=== PATIENT | female | born 1955 | race Caucasian/White ===

== ENCOUNTER 2019-12-31 13:45 | Outpatient (CLI) | payer BC | END 2019-12-31 13:46 | disposition home or self-care (01) | LOC: COV 13:45 | PROVIDERS: ATTEND Family Medicine | DX: R05 Cough (principal); R50.9 Fever, unspecified | CPT/HCPCS: 81599 ==

== ENCOUNTER 2021-10-22 13:35 | Outpatient (CLI) | payer MEDICARE | END 2021-10-22 13:36 | disposition EMS.NT | LOC: EMS 13:35 | DX: R10.9 Unspecified abdominal pain (principal) ==

== ENCOUNTER 2021-10-22 14:30 | Emergency (ER) | payer BC, MEDICARE ==
[2021-10-22] MEDS ORDERED: SODIUM CHLORIDE 0.9% 1,000 ML IV STA (14:58)
--- NOTE | 2021-10-22 14:59 | ED Physician Documentation ---
PD HPI ABD PAIN - Stated complaint Stated Complaint: SHAKING/RAPID HEART RATE - Chief complaint Chief Complaint: Abd Pain - History obtained from History obtained from: Patient - Additional information Additional information: 65-year-old woman with history of conservatively managed diverticulitis developed left lower quadrant pain 6 days ago. She had a televisit with her physician at [facility] who prescribed Cipro and Flagyl for presumed diverticulitis. Over the last day or so she is starting to feel more ill with rapid heart rate, shaking, and an increase in the sharpness of the left lower quadrant pain. She is otherwise very healthy except for a history of cervical radiculopathy and tubal . Review of Systems Ten Systems: 10 systems reviewed and negative Constitutional: reports: Chills, Sweats Cardiac: denies: Chest pain / pressure Respiratory: denies: Dyspnea, Cough PD PAST MEDICAL HISTORY - Allergies Allergies/Adverse Reactions: Allergies Allergy/AdvReac Type Severity Reaction Status Date / Time gluten Allergy Unknown Verified 10/22/21 14:40 Sulfa (Sulfonamide Allergy Respiratory Verified 10/22/21 14:40 Antibiotics) PD ED PE NORMAL - Vitals Vital signs reviewed: Yes - General General: Alert and oriented X 3, No acute distress - HEENT HEENT: PERRL, EOMI - Neck Neck: Supple, no meningeal sign, No bony TTP - Cardiac Cardiac: RRR, No murmur - Respiratory Respiratory: No respiratory distress, Clear bilaterally - Abdomen Abdomen: Normal bowel sounds, Soft, Other (Tender diffusely on the left side, lower more than upper. Potentially some mild rebound tenderness.) - Back Back: No CVA TTP, No spinal TTP - Derm Derm: Normal color, Warm and dry - Extremities Extremities: No edema, No calf tenderness / cord - Neuro Neuro: Alert and oriented X 3, Normal speech Results - Vitals Vitals: Vital Signs - 24 hr 10/22/21 10/22/21 10/22/21 14:40 15:39 17:17 Temperature 37.0 C 37.0 C 36.7 C Heart Rate 94 94 74 Respiratory 19 19 16 Rate Blood Pressure 154/92 H 154/92 H 127/77 O2 Saturation 99 99 100 Oxygen O2 Source Room air - EKG (time done) 1439 Rate: Rate (enter#) (79) Rhythm: NSR [place]: Normal QRS: Low voltage Ischemia: Non specific changes. No: ST elevation c/w ischemia, ST depression - Labs Labs: Laboratory Tests 10/22/21 10/22/21 10/22/21 15:04 15:04 15:45 WBC 5.6 RBC 4.15 L Hgb 13.0 Hct 39.1 MCV 94.2 MCH 31.3 H MCHC 33.2 RDW 13.4 Plt Count 413 MPV 8.3 Neut # (Auto) 3.3 Lymph # (Auto) 1.5 [place] # (Auto) 0.6 Eos # (Auto) 0.1 Baso # (Auto) 0.0 Absolute Nucleated RBC 0.00 Nucleated RBC % 0.0 Sodium 140 Potassium 3.7 Chloride 105 Carbon Dioxide 27 Anion Gap 8.0 BUN 9 Creatinine 0.8 Estimated GFR (MDRD) 72 L Glucose 110 H Calcium 8.9 Total Bilirubin < 0.2 L AST 31 ALT 38 Alkaline Phosphatase 56 Total Protein 6.7 Albumin 3.9 Globulin 2.8 Albumin/Globulin Ratio 1.4 Lipase 48 Urine Color YELLOW Urine Clarity CLEAR Urine pH 7.0 Ur Specific [place] 1.010 Urine Protein NEGATIVE Urine Glucose (UA) NEGATIVE Urine Ketones NEGATIVE Urine Occult Blood NEGATIVE Urine Nitrite NEGATIVE Urine Bilirubin NEGATIVE Urine Urobilinogen 0.2 (NORMAL) Ur Leukocyte Esterase TRACE H Urine RBC 0-5 Urine WBC 0-3 Ur Epithelial Cells FEW Transitional Ur Squamous Epith Cells FEW Squamous Urine Bacteria Rare Ur Microscopic Review INDICATED Urine Culture Comments INDICATED PD MEDICAL DECISION MAKING - ED course ED course: CT showing a persistent diverticulitis. Presume it is the antibiotics now causing her symptoms and she can stop. Otherwise work-up negative. Departure - Departure Disposition: 01 Home, Self Care Clinical Impression: Abdominal pain, Diverticulosis Condition: Good Record reviewed to determine appropriate education?: Yes Instructions: ED Abdominal Pain Female Non-Specific Abdominal Pain Comments: As discussed, at the current time there is no evidence of diverticulitis. Your labs are relatively unremarkable and the CAT scan shows diverticulosis but no diverticulitis. You do have degenerative changes of the spine and hips incidentally noted. I think at this point it is likely that the stomach issues you are having could be related to the antibiotics and I would stop them and presume that your symptoms will resolve. Return if worsening. Discharge Date/Time: 10/22/21 17:25
[2021-10-22 15:11] LABS: BASOPHILS % (AUTO) 0.7 %; EOSINOPHILS # (AUTO) 0.1 10^3/uL (0.0-0.7); EOSINOPHILS % (AUTO) 2.3 %; HCT - HEMATOCRIT 39.1 % (37.0-47.0); LYMPHOCYTES # (AUTO) 1.5 10^3/uL (1.5-3.5); LYMPHOCYTES % (AUTO) 26.7 %; MEAN CORPUSCULAR HEMOGLOBIN 31.3 pg (27.0-31.0); MEAN CORPUSCULAR HGB CONC 33.2 g/dL (32.0-36.0); MEAN CORPUSCULAR VOLUME 94.2 fL (81.0-99.0); MEAN PLATELET VOLUME 8.3 fL (7.9-10.8); MONOCYTES # (AUTO) 0.6 10^3/uL (0.0-1.0); MONOCYTES % (AUTO) 11.2 %; NEUTROPHILS # (AUTO) 3.3 10^3/uL (1.5-6.6); NEUTROPHILS % (AUTO) 58.7 %; PLT - PLATELET COUNT 413 10^3/uL (130-450); RED BLOOD COUNT 4.15 10^6/uL (4.20-5.40); RED CELL DISTRIBUTION WIDTH 13.4 % (12.0-15.0); WHITE BLOOD COUNT 5.6 x10^3/uL (4.8-10.8)
[2021-10-22 15:22] LABS: ALBUMIN 3.9 g/dL (3.2-5.5); ALBUMIN/GLOBULIN RATIO 1.4 (1.0-2.2); ALKALINE PHOSPHATASE 56 IU/L (42-121); ALT ALANINE AMINOTRANSFERASE 38 IU/L (10-60); AST ASPARTATE AMINOTRANSFERASE 31 IU/L (10-42); BILIRUBIN,TOTAL < 0.2 mg/dL (0.2-1.0); BUN - BLOOD UREA NITROGEN 9 mg/dL (6-20); CALCIUM 8.9 mg/dL (8.5-10.3); CARBON DIOXIDE - CO2 27 mmol/L (21-32); CHLORIDE 105 mmol/L (101-111); CREATININE 0.8 mg/dL (0.4-1.0); GFR - MDRD 72 (>89); GLUCOSE 110 mg/dL (70-100); LIPASE 48 U/L (22-51); POTASSIUM 3.7 mmol/L (3.5-5.0); SODIUM 140 mmol/L (135-145); TOTAL PROTEIN 6.7 g/dL (6.7-8.2)
[2021-10-22] MEDS ORDERED: iohexoL-300 100 ML VIAL ONE (15:23)
[2021-10-22 16:40] LABS: BILIRUBIN,URINE NEGATIVE (NEGATIVE); GLUCOSE, URINE (UA) NEGATIVE (NEGATIVE); KETONES,URINE (UA) NEGATIVE (NEGATIVE); LEUKOCYTE ESTERASE, URINE TRACE (NEGATIVE); NITRITE,URINE NEGATIVE (NEGATIVE); OCCULT BLOOD,URINE NEGATIVE (NEGATIVE); PROTEIN,URINE NEGATIVE (NEGATIVE); UROBILINOGEN,URINE 0.2 (NORMAL) E.U./dL (NORMAL)
[2021-10-22 16:42] LABS: CLARITY,URINE CLEAR (CLEAR)
[2021-10-22 16:51] LABS: BACTERIA,URINE Rare /HPF (None Seen); EPITHELIAL CELLS,UR FEW Transitional /HPF (<= Few); RBC,URINE 0-5 /HPF (0-5); SQUAMOUS EPITHELIAL CELL,UR FEW Squamous (<= Few); WBC,URINE 0-3 /HPF (0-5)
--- NOTE | 2021-10-22 17:00 | CT Report ---
PROCEDURE: Abdomen/Pelvis W INDICATIONS: IV only, LLQ pain CONTRAST: IV CONTRAST: Isovue 300 ml: 100 PO CONTRAST: *NO PO CONTRAST TECHNIQUE: After the administration of nonionic iodinated contrast, 5 mm thick sections acquired from the diaphr agms to the symphysis. 5 mm thick coronal and sagittal reformats were acquired. For radiation dose reduction, the following was used: automated exposure control, adjustment of mA and/or kV according to patient size. COMPARISON: None. FINDINGS: Image quality: Excellent. ABDOMEN: Lung bases: Lung bases are clear. Heart size is normal. Small hiatal hernia. Solid organs: Liver and spleen are normal in size and enhancement. Gallbladder is unremarkable. Bi liary system is non dilated. Pancreas enhances normally. No adrenal nodules. Kidneys demonstrate n ormal size and enhancement, without hydronephrosis. Peritoneum and bowel: Small bowel is unremarkable. The stomach demonstrates a small hiatal hernia. Ap pendix is normal. There is diffuse large bowel diverticula most prominent within the sigmoid colon. N o significant inflammation or wall thickening to suggest diverticulitis. Nodes and vessels: No retroperitoneal or mesenteric adenopathy by size criteria. Aorta and inferior vena cava are normal in size. Miscellaneous: No ventral hernias. PELVIS: Genitourinary: Bladder wall thickness is normal. Unremarkable appearance of the uterus. No suspicio us adnexal mass. Miscellaneous: No inguinal hernias or adenopathy. Bones: No suspicious bony lesions. Multilevel degenerative changes of the spine. Minimal degenerati ve changes of the hips. No vertebral body compression fractures. IMPRESSION: Diverticulosis without current findings to suggest diverticulitis. No acute intra-abdominal/pelvic ab normality identified. Reviewed by: Alfa Henry DO on 10/22/2021 3:59 PM [facility] Approved by: Alfa Henry DO on 10/22/2021 3:59 PM [facility] Station ID: [id number]
[2021-10-22] MEDS ORDERED: iohexoL-300 100 ML VIAL IVP ONE (17:15)
[2021-10-22 17:17] VITALS: BP 127/77
== END 2021-10-22 17:25 | disposition home or self-care (01) ==
LOC: ED 14:30
DX: K57.30 Diverticulosis of large intestine without perforation or abscess without bleeding (principal); R10.32 Left lower quadrant pain; M16.0 Bilateral primary osteoarthritis of hip; M47.9 Spondylosis, unspecified
CPT/HCPCS: 36415; 74177; 80053; 81001; 83690; 85025; 87086; 93005; 99282; 99284; Q9967; 81003

== ENCOUNTER 2024-01-15 07:42 | Outpatient (CLI) | payer MEDICARE | END 2024-01-15 23:59 | disposition EMS.NT | LOC: EMS 07:42 | DX: R10.11 Right upper quadrant pain (principal); R10.811 Right upper quadrant abdominal tenderness ==

== ENCOUNTER 2024-01-15 09:32 | Emergency (ER) | payer MEDICARE ==
[2024-01-15 10:14] LABS: BILIRUBIN,URINE NEGATIVE (NEGATIVE); GLUCOSE, URINE (UA) NEGATIVE (NEGATIVE); KETONES,URINE (UA) NEGATIVE (NEGATIVE); LEUKOCYTE ESTERASE, URINE NEGATIVE (NEGATIVE); NITRITE,URINE NEGATIVE (NEGATIVE); OCCULT BLOOD,URINE NEGATIVE (NEGATIVE); PROTEIN,URINE NEGATIVE (NEGATIVE); UROBILINOGEN,URINE 0.2 (NORMAL) E.U./dL (NORMAL)
[2024-01-15 10:19] LABS: CLARITY,URINE CLEAR (CLEAR)
[2024-01-15 10:35] LABS: BASOPHILS # (AUTO) 0.1 10^3/uL (0.0-0.1); EOSINOPHILS # (AUTO) 0.2 10^3/uL (0.0-0.7); EOSINOPHILS % (AUTO) 3.3 %; HCT - HEMATOCRIT 40.9 % (37.0-47.0); HGB - HEMOGLOBIN 13.7 g/dL (12.0-16.0); LYMPHOCYTES # (AUTO) 2.2 10^3/uL (1.5-3.5); LYMPHOCYTES % (AUTO) 42.1 %; MEAN CORPUSCULAR HEMOGLOBIN 32.2 pg (27.0-31.0); MEAN CORPUSCULAR HGB CONC 33.5 g/dL (32.0-36.0); MEAN CORPUSCULAR VOLUME 96.2 fL (81.0-99.0); MEAN PLATELET VOLUME 8.5 fL (7.9-10.8); MONOCYTES # (AUTO) 0.7 10^3/uL (0.0-1.0); MONOCYTES % (AUTO) 12.7 %; NEUTROPHILS # (AUTO) 2.1 10^3/uL (1.5-6.6); NEUTROPHILS % (AUTO) 40.7 %; PLT - PLATELET COUNT 398 10^3/uL (130-450); RED BLOOD COUNT 4.25 10^6/uL (4.20-5.40); RED CELL DISTRIBUTION WIDTH 12.8 % (12.0-15.0); WHITE BLOOD COUNT 5.1 x10^3/uL (4.8-10.8)
[2024-01-15 10:54] LABS: ALBUMIN 3.9 g/dL (3.2-5.5); ALBUMIN/GLOBULIN RATIO 1.6 (1.0-2.2); BILIRUBIN,TOTAL 0.4 mg/dL (0.2-1.0); CALCIUM 9.9 mg/dL (8.5-10.3); CREATININE 0.9 mg/dL (0.6-1.3); POTASSIUM 4.1 mmol/L (3.5-4.5); TOTAL PROTEIN 6.3 g/dL (6.4-8.9)
--- NOTE | 2024-01-15 11:23 | ED Physician Documentation ---
PD HPI ABD PAIN - Stated complaint Stated Complaint: RT ABD PX,FEVER - Chief complaint Chief Complaint: Abd Pain - Additional information Additional information: 68-year-old female presents emergency department for right upper quadrant pain. Patient said that she felt very malaise and fatigue yesterday she said that she felt weak she had done a 100 sit ups but had not recently exercise. She says the pain is in her right upper quadrant and feels very sharp shooting stabbing and she fell at this morning she is having intermittent hot and cold flashes she did not take Her chart. She has had no nausea or vomiting no diarrhea. No history of gallstones denies any chest pain or shortness of breath. 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 HEENT: Tonsil/Adenoidectomy - Present Medications Home Medications: Ambulatory Orders Medication Instructions Recorded Confirmed No Known Home Medications 01/15/24 01/15/24 - Allergies Allergies/Adverse Reactions: Allergies Allergy/AdvReac Type Severity Reaction Status Date / Time gluten Allergy Unknown Verified 01/15/24 09:42 Sulfa (Sulfonamide Allergy Respiratory Verified 01/15/24 09:42 Antibiotics) - Social History Does the pt smoke?: No Smoking Status: Never smoker Does the pt drink ETOH?: No Does the pt have substance abuse?: No - Immunizations Immunizations are current?: Yes - POLST Patient has POLST: No PD ED PE NORMAL - Vitals Vital signs reviewed: Yes - General General: Alert and oriented X 3, No acute distress, Well developed/nourished - HEENT HEENT: Atraumatic, PERRL - Neck Neck: Supple, no meningeal sign, No bony TTP - Cardiac Cardiac: RRR, No murmur, No gallop - Respiratory Respiratory: No respiratory distress, Clear bilaterally - Abdomen Abdomen: Normal bowel sounds, Soft, Non distended, No organomegaly, Other (RUQ t enderness, mostly superior to right ribs and along right ribs,) - Back Back: No CVA TTP, Other - Derm Derm: Normal color, Warm and dry, No rash Results - Vitals Vitals: Vital Signs - 24 hr 01/15/24 01/15/24 01/15/24 09:38 12:00 13:25 Temperature 36.4 C L Heart Rate 85 71 Respiratory 20 17 16 Rate Blood Pressure 138/77 H 100/88 H O2 Saturation 100 99 01/15/24 01/15/24 01/15/24 14:19 14:55 15:00 Temperature Heart Rate 75 Respiratory 16 16 16 Rate Blood Pressure 122/78 O2 Saturation 96 Oxygen O2 Source Room air - Labs Labs: Laboratory Tests 01/15/24 01/15/24 01/15/24 09:46 10:26 10:26 WBC 5.1 RBC 4.25 Hgb 13.7 Hct 40.9 MCV 96.2 MCH 32.2 H MCHC 33.5 RDW 12.8 Plt Count 398 MPV 8.5 Neut # (Auto) 2.1 Lymph # (Auto) 2.2 [place] # (Auto) 0.7 Eos # (Auto) 0.2 Baso # (Auto) 0.1 Absolute Nucleated RBC 0.00 Nucleated RBC % 0.0 Sodium 137 Potassium 4.1 Chloride 106 Carbon Dioxide 24 Anion Gap 7.0 BUN 14 Creatinine 0.9 Estimated GFR (MDRD) 62 L Glucose 86 Calcium 9.9 Total Bilirubin 0.4 AST 20 ALT 30 Alkaline Phosphatase 71 Troponin I High Sens Total Protein 6.3 L Albumin 3.9 Globulin 2.4 Albumin/Globulin Ratio 1.6 Lipase 20 Urine Color LIGHT YELLOW Urine Clarity CLEAR Urine pH 6.0 Ur Specific [place] 1.010 Urine Protein NEGATIVE Urine Glucose (UA) NEGATIVE Urine Ketones NEGATIVE Urine Occult Blood NEGATIVE Urine Nitrite NEGATIVE Urine Bilirubin NEGATIVE Urine Urobilinogen 0.2 (NORMAL) Ur Leukocyte Esterase NEGATIVE Ur Microscopic Review NOT INDICATED Urine Culture Comments NOT INDICATED 01/15/24 10:26 WBC RBC Hgb Hct MCV MCH MCHC RDW Plt Count MPV Neut # (Auto) Lymph # (Auto) [place] # (Auto) Eos # (Auto) Baso # (Auto) Absolute Nucleated RBC Nucleated RBC % Sodium Potassium Chloride Carbon Dioxide Anion Gap BUN Creatinine Estimated GFR (MDRD) Glucose Calcium Total Bilirubin AST ALT Alkaline Phosphatase Troponin I High Sens < 2.3 L Total Protein Albumin Globulin Albumin/Globulin Ratio Lipase Urine Color Urine Clarity Urine pH Ur Specific [place] Urine Protein Urine Glucose (UA) Urine Ketones Urine Occult Blood Urine Nitrite Urine Bilirubin Urine Urobilinogen Ur Leukocyte Esterase Ur Microscopic Review Urine Culture Comments PD Medical Decision Making - ED course ED course: 68 y/o patient with RUQ pain, consistent with Musculoskeletal strain. Abdominal exam without peritoneal signs. No evidence of acute abdomen at this time. Well appearing. Given RUQ US findings patient has no signs of acute cholecystitis or cholangitis. Less likely to represent acute pancreatitis (neg lipase), PUD (including gastric perforation), acute infectious processes (pneumonia, hepatitis, pyelonephritis), atypical appendicitis, vascular catastrophe, bowel obstruction or viscus perforation, or acute coronary syndrome. Presentation not consistent with other acute, emergent causes of abdominal pain at this time. Labs were completed including a troponin and really there were no significant abnormalities including her urinalysis. Patient was offered Tylenol ibuprofen for her pain but she says at this point in time it has fully resolved. Considered doing a CT scan of her abdomen pelvis but given that the pain is very reproducible and is mostly to the rib region I believe that this is somehow a muscle skeletal strain. She is told to take Tylenol ibuprofen at home for any pain and discomfort alternate between heat and ice and to follow-up with primary care provider in a couple days. Return precautions given all questions answered. Departure - Departure Disposition: 01 Home, Self Care Clinical Impression: Right upper quadrant pain, Rib pain on right side Instructions: ED Abdominal Pain Female Non-Specific Abdominal Pain, ED Strain Abdominal Muscle Comments: Thank you for trusting us with your care, we have evaluated you for pain to right upper quadrant. We have completed an ultrasound as well as labs and a urinalysis and all are coming back inconclusive for any acute abnormalities or findings. At this time here pain is most likely due to musculoskeletal given the fact that it is very tender in that right upper rib region. Alternate between 1000 mg of Tylenol every 8 hours and 600 mg of ibuprofen every 6 hours to help with pain and discomfort while applying 20 minutes of ice 20 minutes of heat and doing some gentle stretching and range of motion exercises. If you are still having a hard time with this pain and after 3 days please follow-up with your primary care provider for further evaluation. If your pain changes or worsens in any way shape or form or you have new or worsening concerning symptoms please come back to the emergency department for further evaluation. Wishing you a speedy recovery. Forms: PCP List Discharge Date/Time: 01/15/24 15:16
[2024-01-15 15:04] VITALS: BP 122/78; O2SAT 96
--- NOTE | 2024-01-15 16:00 | Ultrasound Report ---
PROCEDURE: Abdomen Limited INDICATIONS: RUQ pain TECHNIQUE: Real-time focused scanning was performed of the abdomen, with image documentation. COMPARISONS: CT abdomen pelvis 10/22/2021. FINDINGS: Liver: Liver is normal in size and homogeneous in echotexture. Gallbladder: Unremarkable. Biliary ducts: Intrahepatic bile ducts are non-dilated. Extrahepatic bile duct caliber measures 4 m m. Normal is 6-7 mm or less in diameter, or 10 mm or less post-cholecystectomy. Pancreas: Visualized portions of the pancreas are sonographically normal. Right kidney: Normal in size and echotexture. Right kidney measures 9.6 cm long. No hydronephrosis o r nephrolithiasis. No solid masses. No complex renal cystic lesions which require follow-up. Aorta: Proximal aorta is normal in caliber at less than 3 cm. IVC: Intrahepatic inferior vena cava is patent. Miscellaneous: No free abdominal fluid. IMPRESSION: No cause for patient's pain is identified. Normal appearance of the gallbladder without stones. Reviewed by: Martínez Carrasco MD on 01/15/2024 3:59 PM PDT Approved by: Martínez Carrasco MD on 01/15/2024 3:59 PM PDT Station ID: [id number]
== END 2024-01-15 15:16 | disposition home or self-care (01) ==
LOC: ED 09:32
DX: R10.11 Right upper quadrant pain (principal); R07.81 Pleurodynia
CPT/HCPCS: 36415; 80053; 81001; 81003; 83690; 84484; 85025; 87086; 99283; 99284